=== PATIENT | female | born 1950 | race Caucasian/White ===

== ENCOUNTER 2017-07-13 13:31 | Emergency (ER) | payer BC, OTHER ==
[2017-07-13 13:46] VITALS: BP 109/73
--- NOTE | 2017-07-13 13:53 | UC ---
Palpitation/Dysrhythmia HP - HPI Summary HPI Summary: WAS AT THE GYM TODAY AND BEFORE SHE STARTED HER WORKOUT SHE CHECKED HER PULSE AND IT WAS 150BPM. LEAD NITRATE PROCESSOR ADVISED SHE BE CHECKED OUT. DENIES SOB, CP, NAUSEA, FEVER, VISUAL DISTURBANCES, MONTERO OR ANY OTHER SYMPTOMS. FEELS WELL. SLEEPS WELL, DOES NOT DRINK CAFFEINE. NO RECENT STRESSORS. 2 BROTHERS OR SUDDEN CARDIAC ARREST AGE 50 AND AGE 60. - History of Current Complaint Chief Complaint: UCCardiac Stated Complaint: FAST HEART RATE Time Seen by Provider: 07/13/17 13:40 Hx Obtained From: Patient Onset/Duration: Sudden Onset, Lasting Hours Timing: Constant Severity Initially: Mild Severity Currently: Mild Pain Intensity: 0 Pain Scale Used: 0-10 Numeric Character: Fast Aggravating Factor(s): Nothing Alleviating Factor(s): Nothing Associated Signs & Symptoms: Positive: Negative - Allergy/Home Medications Allergies/Adverse Reactions: Allergies Allergy/AdvReac Type Severity Reaction Status Date / Time Penicillins Allergy Hives Verified 07/13/17 13:47 PMH/Surg Hx/FS Hx/Imm Hx Endocrine History: Diabetes - Surgical History Surgical History: Yes - Family History Known Family History: Positive: Cardiac Disease - Social History Alcohol Use: None Substance Use Type: None Smoking Status (MU): Never Smoked Tobacco Review of Systems Constitutional: Negative Respiratory: Negative Cardiovascular: Palpitations Gastrointestinal: Negative All Other Systems Reviewed And Are Negative: Yes Physical Exam Triage Information Reviewed: Yes Appearance: Well-Appearing, No Pain Distress, Well-Nourished Vital Signs: Initial Vital Signs Temp 97.5 F 07/13/17 13:43 Pulse 153 07/13/17 13:43 Resp 18 07/13/17 13:43 BP 109/73 07/13/17 13:43 Pulse Ox 99 07/13/17 13:43 Vital Signs Reviewed: Yes Eyes: Positive: Conjunctiva Clear ENT: Positive: Hearing grossly normal Neck: Positive: Supple Respiratory Exam: Normal Cardiovascular: Positive: Tachycardia Abdomen Description: Positive: Soft Musculoskeletal: Positive: No Edema Neurological: Positive: Alert Psychological: Positive: Age Appropriate Behavior Skin: Negative: rashes Diagnostics - EKG Cardiac Rate: Tachycardia - 151BPM, SVT Ectopy: None ST Segment: Normal Palpitations Course/Dx - Differential Dx/Diagnosis Provider Diagnoses: SVT - Physician Notifications Discussed Patient Care With: Javan Solis - TO [facility] Time Discussed With Above Provider: 13:53 Instructed by Provider To: MD Will See In ED Discharge - Discharge Plan Condition: Stable Disposition: TRANS HIGHER LVL OF CARE FAC Referrals: Tiffany Ag MD [Primary Care Provider] -
== END 2017-07-13 14:03 | disposition short-term general hospital (02) ==
LOC: UCEAST 13:31
DX: I47.1 Supraventricular tachycardia (principal); Z88.0 Allergy status to penicillin
CPT/HCPCS: 93005; 99203; G0463

== ENCOUNTER 2017-07-13 14:22 | Observation (INO) | payer BC, OTHER ==
[2017-07-13] MEDS ORDERED: Aspirin Low Dose CHEW TAB* 81 MG PO ONE (14:33)
[2017-07-13] MEDS ORDERED: Diltiazem IV VIAL* 125 MG/25 ML VIAL ONE (14:39)
[2017-07-13 14:43] LABS: Hematocrit 45 % (35-47); Hemoglobin 15.4 g/dl (12.0-16.0); Mean Corpuscular HGB Conc 34 g/dl (31-36); Mean Corpuscular Hemoglobin 32 pg (27-31); Mean Corpuscular Volume 92 fL (80-97); Mean Platelet Volume 8 um3 (7.4-10.4); Red Blood Count 4.89 10^6/ul (4.0-5.4); Red Cell Distribution Width 13 % (10.5-15); White Blood Count 8.8 10^3/ul (3.5-10.8)
[2017-07-13] MEDS ORDERED: NS 0.9% 1000 ML* 1,000 ML IV ONE (14:52)
[2017-07-13] MEDS ORDERED: Diltiazem IV VIAL* 125 MG in D5W 100 ML BAG* 100 ML IV ONE (14:52)
[2017-07-13] MEDS ORDERED: Diltiazem IV* 5 MG/ML 5 ML VIAL (for loading dose/IV Push) (25 MG) IV SLOW PU ONE (14:55)
[2017-07-13 15:01] LABS: Troponin I 0.06 ng/mL (<0.04)
[2017-07-13 15:06] LABS: T4 6.41 mcg/mL (6.09-12.23)
[2017-07-13 15:11] LABS: TSH (Thyroid Stimulating Horm) 1.84 mcIU/mL (0.34-5.60)
[2017-07-13 15:21] LABS: Albumin 4.2 g/dL (3.2-5.2); BUN/Creatinine Ratio 18.6 (8-20); Calcium 9.7 mg/dL (8.6-10.3); EGFR African American 84.6 (>60); EGFR Non-African American 65.8 (>60); Globulin 3.2 g/dL (2-4); Magnesium 2.3 mg/dL (1.9-2.7); Total Bilirubin 0.7 mg/dL (0.2-1.0); Total Protein 7.4 g/dL (6.4-8.9)
[2017-07-13 15:47] LABS: Urine Bilirubin Negative (Negative); Urine Glucose Negative (Negative); Urine Nitrite Negative (Negative)
--- NOTE | 2017-07-13 15:47 | RAD ---
Indication: Tachycardia. Comparison: No relevant prior exams available on the [facility] [place] for comparison. Technique: Upright AP 1455 hours Report: No focal pulmonary lesion, compelling alveolar consolidation, pleural effusion, pneumothorax. The heart, pulmonary vasculature, and mediastinal contours are unremarkable. IMPRESSION: No evidence for acute intrathoracic disease.
[2017-07-13 16:06] LABS: Potassium 4.1 mmol/L (3.5-5.0)
[2017-07-13] MEDS ORDERED: Acetaminophen TAB* 325 MG PO PRN (17:25)
[2017-07-13] MEDS ORDERED: Ondansetron INJ* 2 MG/ML VIAL IV PRN (17:25)
[2017-07-13] MEDS: Metoprolol Tartrate TAB* 25 MG PO SCH ×2 (18:31→21:24)
[2017-07-13] MEDS: Rivaroxaban TAB(*) 20 MG TAB PO SCH (18:31)
--- NOTE | 2017-07-13 21:00 | HP ---
CC: Dr. Tiffany Gardner; Dr. Rocio Ponce * ADMISSION HISTORY AND PHYSICAL: DATE OF ADMISSION: 07/13/17 PRIMARY CARE PROVIDER: Dr. Tiffany Gardner. PRIMARY LIVESTOCK INSPECTOR: Dr. Rocio Ponce. ADMITTING PROVIDER: KADEN Ogden SUPERVISING PHYSICIAN: Dr. Travon Carter * (DICTATED BY KADEN OGDEN) CHIEF COMPLAINT: Tachycardia. HISTORY OF PRESENT ILLNESS: This is a 67-year-old female who is otherwise healthy, but has a strong family history of premature coronary artery disease, who presented to the emergency department with a complaint of tachycardia. The patient states that she went to the gym earlier this afternoon and sat on an piece of exercise equipment at which point, it measured her heart rate at approximately 150 beats per minute. She went to another piece of equipment assuming that the initial one was incorrect and it read the same thing. She went to [facility] which referred her to the emergency department for further evaluation. When the patient reached the emergency department, initial EKG demonstrated what appeared to be atrial flutter with a rate of approximately 150 beats per minute. The patient was started on a diltiazem drip and cardioverted in the emergency department, but her troponin is indeterminate at this time and hospitalist group has been asked for admission. Dr. Ponce has consulted in the emergency room. In regards to recent symptoms, the patient states that she has been feeling well. She denies any recent illness. She denies any new hprn-aox-fritkgx medications. She has had no associated shortness of breath or chest pain. She does recall a few palpitations last night, but was able to fall asleep without incident. She does not recall any similar sensations prior to last night. She does not have a personal history of any cardiac disease or dysrhythmias. PAST MEDICAL HISTORY: None. PAST SURGICAL HISTORY: None. HOME MEDICATIONS: Niacin 1000 mg p.o. daily. FAMILY HISTORY: She has significant family history of premature coronary artery disease and sudden cardiac . SOCIAL HISTORY: The patient lives at home with her . She generally consumes about 3 glasses of wine weekly. She denies any smoking history and she is retired. REVIEW OF SYSTEMS: As noted above in HPI, all other systems reviewed and otherwise negative. PHYSICAL EXAMINATION GENERAL: This is a very pleasant 67-year-old female, who appears younger than her stated age and is in no acute distress. VITAL SIGNS: Initial vitals, temperature 97.7 degrees Fahrenheit, pulse 156 beats per minute, respiratory rate 16 per minute, oxygen saturation 97% on room air, and blood pressure 151/89 mmHg. Most recent vitals include a heart rate of 74 beats per minute with a blood pressure of 100/53 mmHg. HEENT: Head is normocephalic and atraumatic. Mucous membranes are pink and moist. RESPIRATORY: Lungs are clear to auscultation without wheezes, crackles, or rhonchi. CARDIOVASCULAR: Heart has a regular rate and rhythm without murmurs, rubs, or gallops. ABDOMEN: Soft and nontender to palpation. EXTREMITIES: No edema appreciated. PSYCH: The patient is alert and appropriately oriented. SKIN: Limited exam shows no concerning rashes or lesions. DIAGNOSTIC STUDIES/LAB DATA: CBC shows a white blood cell count of 8800, hemoglobin 15.4 g/dL, and a platelet count of 248,000. Comprehensive metabolic panel shows a sodium of 140 mmol/L, potassium 4.1, bicarb 26, BUN 16, creatinine of 0.86, and a random glucose of 95. Lactic acid is normal at 1.3. Magnesium normal at 2.3. Transaminases and total bilirubin within normal limits. Troponin indeterminate at 0.06. TSH normal at 1.84. Urinalysis is unremarkable. Imaging: EKG initially shows atrial flutter with a rate of about 150 beats per minute. Repeat EKG shows a sinus rhythm with a right bundle branch block and a short ME interval. Chest x-ray shows no acute process. ASSESSMENT AND PLAN: This is a pleasant and previously healthy 67-year-old female with a strong family history of premature coronary artery disease, who presents with complaints of tachycardia, noted to be in atrial flutter with a rate of about 150 beats per minute, now converted to sinus rhythm, but with mildly elevated troponin. 1. Atrial flutter - the patient has spontaneously converted with diltiazem drip in the emergency department. She will be transitioned to oral metoprolol. Dr. Ponce evaluated the patient in the emergency department, who suggested initiating a NOAC for at least a 1-month period of time; this is unclear how long exactly she has been in this flutter rhythm. We will go ahead and initiate Xarelto. We will plan to obtain an echocardiogram and if her troponins trend down, a stress test in the morning. Due to her strong family history, Dr. Ponce has high suspicion for coronary artery disease and if troponins trend up, would recommend cardiac catheterization. The patient is asymptomatic at this time denying chest pain currently or in the recent past. We will plan to trend her troponin and maintain continuous telemetry monitoring. In terms of inciting factors for this dysrhythmia, there does not appear to be any. The patient denies any recent illness, new medications, nor is there evidence of significant electrolyte abnormalities. Dr. Ponce also suggested initiation of Multaq could be considered if troponins trend down and she has a low risk stress test. We will initiate AV lilly blocking agents at this time until further information is gathered tomorrow. 2. Code status. The patient is full code. 3. Healthcare proxy is her . 4. DVT prophylaxis. The patient will be started on Xarelto. 5. Disposition. The patient is being admitted to observation status with anticipated length of stay to be less than 2 midnights. KADEN OGDEN [id number]/[facility] #: [id number] XUAN
--- NOTE | 2017-07-13 21:25 | CONS ---
CC: Dr. Gardner * CONSULTATION REPORT: DATE OF CONSULT: 07/13/17 REASON FOR CONSULTATION: Atrial flutter. CHIEF COMPLAINT: Tachycardia. HISTORY OF PRESENT ILLNESS: Ms. Schulz is a 67-year-old woman who I follow for atherosclerotic risks, a family history of early atherosclerotic heart disease and sudden . The patient was in her usual state of health, went to the gym this morning and her heart rate monitor that she always wears showed her heart rate was 150 beats a minute. She thought the monitor must be wrong as she felt fine, went to another one and showed the same thing. She went to [facility] where EKG confirmed that she was, in fact, tachycardic and she was sent to the emergency department. By the time I saw her, she had cardioverted from atrial flutter with a rapid ventricular rate to sinus rhythm. The patient states the last night in hindsight, she had some fluttering, but did not really feel bad. She was otherwise completely unaware of the rhythm. When she went into the sinus rhythm in the emergency department, she felt no differently. She denies any recent fevers, chills, sweats. She did drink a little more alcohol recently as her brother was in town. She did not feel it was an excessive amount. She has been tapering her niacin dose. Otherwise, there has been no changes in her lifestyle. PAST MEDICAL HISTORY: Dyslipidemia including elevated Lp(a), depression and concussion twice as a young adult. OUTPATIENT MEDICATIONS: Include: 1. Niacin 1000 mg daily, decreased from 2 g a day. 2. Cymbalta 60 mg a day. ALLERGIES: She is allergic to PENICILLIN. FAMILY HISTORY: Significant for early atherosclerotic heart disease with her father. She has a brother who of sudden and on autopsy was found to have calcific atherosclerosis of the coronaries. She has another brother with atrial fibrillation. Two maternal uncles of heart attacks in their 40s. Their father of a heart attack at age 64. She has brothers with bicuspid valve. His sister with hypertension and dyslipidemia. SOCIAL HISTORY: Drinks occasional glass of wine. Nonsmoker. No history of recreational drug use or abuse. She is and lives with supportive . Two cups of coffee daily. Her occupation is an artist. REVIEW OF SYSTEMS: No recent travel, no recent fevers, chills, sweats. No recent change in functional ability. No chest pain, pressure, headiness, orthopnea, PND. Positive for the fluttering she noted last night. The patient states she sleep well. She denies being told she snores or be having daytime fatigue. She has had no respiratory infections. No nvqy-yft-riedulr medications and no recent change in bowel or bladder habits. All other 14- point review of systems was unremarkable. PHYSICAL EXAM: The patient is 5 feet 8 inches, weighs 169 pounds with a BMI of 26. On arrival to the emergency department, blood pressure 151/89 with a pulse rate of 156, respiratory rate of 16. Her current vitals, blood pressure 126/59 , pulse of 73 and regular, with oxygen saturation 96%. She is afebrile at 97.7. General Appearance: Mildly overweight, somewhat older woman in no acute distress. Psychologically, calm, cooperative, pleasant. Neurologically, awake, alert and oriented to person, place and time. Cranial nerves II through XII intact. Grossly normal sensory and motor function in the upper and lower extremities. Normal gait. Skin: Warm, dry, age appropriate changes. No cyanosis or rashes. HEENT: Pupils are equal and round. Mucous membranes are moist. Neck without increased JVP appreciated. Good carotid pulses. No audible bruits. Lungs: Clear with good effort. No wheezes, rales or rhonchi. Coronary: S1, S2, regular without murmurs or rubs. Abdomen: Soft, nontender , no hepatomegaly. Active bowel sounds, nontender. Lower extremities: Warm and free of edema. DIAGNOSTIC STUDIES/LAB DATA: A 12-lead ECG from the bench machine operator shows a regular tachycardia with a right bundle branch block at a rate of 148 beats a minute with some ST depressions in the precordial leads. Monitor strips on diltiazem drip consistent with atrial flutter with an atrial rate of 300 beat a minute. A 12-lead ECG after cardioversion on a diltiazem drip shows normal sinus rhythm with a short MT interval, a right bundle branch block, normal ST segment. QRS axis of 0. LABS: White count 8.8, hemoglobin 15.4, hematocrit 45, platelets 248. Sodium 140, potassium 4.1, chloride 104, bicarb 26, BUN 16, creatinine 0.86, magnesium 2.3, ALT of 18, troponin #1 0.06. TSH 1.84, thyroxine 6.24. Urinalysis unremarkable. SUMMARY: Sharmila Schulz is a 67-year-old woman who had nearly asymptomatic atrial flutter with 2:1 block as well as a right bundle branch block and short MT interval on her baseline ECG. Short term, I would recommend anticoagulation for at least a month as the duration is uncertain. She has almost no symptoms. There is evidence of some myocardial stress with a mild troponin. We can decide on supervisor intermediates anticoagulation yes or no later as an outpatient. Ultimately, I think she may do better with a flutter ablation with a short TR interval. I do not think it is urgent to emergent. A safe antiarrhythmic although low potency could be Multaq and this could be initiated now. With her family history of early atherosclerotic heart disease, I would not want to start anything that could be pro-arrhythmic without additional testing. For her indeterminant troponin, I think we should trend this and if she remains borderline or indeterminate or normal, we could consider a stress test so if she bumps at all with her strong family history of early atherosclerotic heart disease, I have a low index for cardiac catheterization despite her good functional ability prior to this event. Thank you for allowing me to assist in this nice woman's care. [id number]/[facility] #: [id number] XUAN
[2017-07-14 05:16] LABS: BUN/Creatinine Ratio 17.4 (8-20); Calcium 8.5 mg/dL (8.6-10.3); EGFR African American 109.1 (>60); EGFR Non-African American 84.9 (>60); Magnesium 2.1 mg/dL (1.9-2.7); Potassium 3.9 mmol/L (3.5-5.0)
[2017-07-14] MEDS: Metoprolol Tartrate TAB* 25 MG PO SCH (11:09)
--- NOTE | 2017-07-14 11:22 | RAD ---
Edited for charges. INDICATION: Elevated troponin. New atrial flutter. COMPARISON: No relevant prior exams available on the [facility] PACS for comparison. TECHNIQUE: 10.010 mCi of Tc-99m Myoview were administered IV. SPECT images of the heart were obtained. Later on the same day. Under the direction of Dr. Zavaleta, an exercise stress test was performed. The patient achieved a peak heart rate of 138 bpm, 90 % of the age- predicted maximum. Subsequently, the patient was given an IV injection of 25.780 mCi Tc- 99m Myoview. SPECT images of the heart were obtained and a gated wall motion study was performed. FINDINGS: Gated wall motion images were obtained at stress and demonstrate wall motion to be within normal limits. The calculated left ventricular ejection fraction is 78 % at stress. Estimated LEFT ventricular end diastolic volume is 80 mL. TID 1.03. Diaphragmatic attenuation noted. Based on review of the attenuation corrected and non corrected images the distribution of radiopharmaceutical within the myocardium on the stress and rest images is within normal limits. No fixed or reversible regions of hypoperfusion evident. IMPRESSION: 1. No evidence for stress induced myocardial ischemia or presence of an infarct. 2. Normal left ventricular wall motion and ejection fraction. ASSESSMENT: LOW RISK. Based on imaging criteria from ACC/AHA 2002 Guideline Update for the Management of Patients With Chronic Stable Angina Table 23. Noninvasive Risk Stratification. MTDD
--- NOTE | 2017-07-14 16:39 | ECHO ---
Patient: MATTY RILEY [facility] Rec#: [id number] : 1950 Date: 07/14/2017 Age: 67y Height: 172.72 cm / 68.0 in Weight: 76.66 kg / 169.0 lbs Sex: F BSA: 1.9 Room#: 440 Admit Date#: 07/13/2017 Type: Inpatient Referring: Óscar Sawant Reading: Domingo He DO Pc Tech: Michaela Ng RDCS CC: Tiffany Ag MD Transthoracic Echocardiogram Indication: A-flutter BP: 91/57 HR: 63 Rhythm: NSR Findings History: A-flutter, HLD, positive family history of CAD. Technical Comments: The study quality is fair. The study is technically limited due to patient body habitus. Completed at 1250. Left Ventricle: The left ventricular chamber size is normal. Mild concentric left ventricular hypertrophy is observed. Global left ventricular wall motion and contractility are within normal limits. There is normal left ventricular systolic function. The estimated ejection fraction is 60-65%. Normal left ventricular diastolic filling is observed. Left Atrium: The left atrium is mildly dilated. Right Ventricle: The right ventricle is mildly dilated. The right ventricular global systolic function is low normal. Right Atrium: The right atrium is mildly dilated. Aortic Valve: The aortic valve is trileaflet. Mild aortic leaflet calcification is visualized. There is evidence of aortic sclerosis without stenosis. There is mild aortic regurgitation. Mitral Valve: There is mitral annular calcification. The mitral valve leaflets are mildly thickened. There is trace to mild mitral regurgitation. There is no evidence of mitral stenosis. Tricuspid Valve: The tricuspid valve leaflets are normal. There is moderate tricuspid regurgitation. No pulmonary hypertension is noted. There is no tricuspid stenosis. Pulmonic Valve: The pulmonic valve appears normal. There is a trace pulmonic regurgitation. There is no pulmonic stenosis. Pericardium: There is no significant pericardial effusion. Aorta: There is borderline dilatation of the ascending aorta. There is no dilatation of the aortic arch. The aortic root is normal in size. Pulmonary Artery: The main pulmonary artery is not well visualized. Venous: The inferior vena cava appears normal in size. There is a greater than 50% respiratory change in the inferior vena cava dimension. Conclusions The left ventricular chamber size is normal. Mild concentric left ventricular hypertrophy is observed. There is normal left ventricular systolic function. The estimated ejection fraction is normal at 60-65%. The left atrium is mildly dilated. The right ventricle is mildly dilated with low normal RV function There is evidence of aortic sclerosis without any significant stenosis by doppler evaluation. There is mild aortic regurgitation. There is moderate tricuspid regurgitation. No pulmonary hypertension is noted. There is borderline dilatation of the ascending aorta. Compared to prior study from 10/2012, significant changes are the new presence of mild bi-atrial dilation, TR is now moderate (was mild previously), the RV size is now mildly dilated (was normal previously) Measurements Name Value Normal Range RVIDd (AP) 2D 3.2 cm (0.9 - 2.6) RVDdMajor (2D) 4.3 cm (2.2 - 4.4) RAd ISD 4CH 5 cm (3.4 - 4.9) RA (A4C)W 3.9 cm (2.9 - 4.6) IVSd (2D) 1.2 cm (0.6 - 1) LVPWd (2D) 1.1 cm (0.6 - 1) LVIDd (2D) 4.7 cm (3.6 - 5.4) LVIDs (2D) 3 cm - LV FS (2D) 37 % (25 - 45) Aortic Annulus 1.9 cm (1.4 - 2.6) Ao root diameter (2D) 3.1 cm (2.1 - 3.5) Ascending Ao 3.5 cm (2.1 - 3.4) Aortic arch 2.5 cm (1.8 - 3.4) LA dimension (AP) 2D 3.9 cm (2.3 - 3.8) LAd ISD 4CH 5.4 cm (2.9 - 5.3) LA ISD 4CH W 4.2 cm (2.5 - 4.5) Name Value Normal Range LA ESV SP 4CH (A/L) 48 ml - LA ESV SP 2CH (A/L) 64 ml - LA ESV BP (A/L) 57 ml - LA ESV BP (A/L) index 30 ml/m2 - LA ESV SP 4CH (MOD) 46 ml - LA ESV SP 2CH (MOD) 61 ml - Name Value Normal Range MV E-wave Vmax 0.7 m/sec - MV deceleration time 212 msec - MV A-wave Vmax 0.52 m/sec - MV E:A ratio 1.33 ratio - LV septal e' Vmax 0.1 m/sec - LV lateral e' Vmax 0.08 m/sec - LV E:e' septal ratio 7 ratio - LV E:e' lateral ratio 8.75 ratio - Name Value Normal Range AV Vmax 2.08 m/sec - AV VTI 46.6 cm - AV peak gradient 17.33 mmHg - AV mean gradient 11.61 mmHg - LVOT diameter 2 cm - LVOT Vmax 1.1 m/sec - LVOT VTI 22.9 cm - LVOT peak gradient 4.99 mmHg - LVOT mean gradient 2.37 mmHg - DOI (VTI) 0.49 ratio - AR PHT 456 msec - AR peak gradient 39.4 mmHg - FELICIA Vmax 0.57 m/sec - Name Value Normal Range TR Vmax 2.6 m/sec - TR peak gradient 27 mmHg - RAP 3 mmHg - RVSP 30 mmHg - IVC diameter 1.8 cm - Name Value Normal Range PV Vmax 0.88 m/sec - PV peak gradient 3.07 mmHg -
[2017-07-14 17:16] VITALS: BP 121/55
[2017-07-14] MEDS: Rivaroxaban TAB(*) 20 MG TAB PO SCH (17:19)
--- NOTE | 2017-07-15 02:10 | DS ---
CC: Dr. Gardner; Dr. Rocio Ponce * DISCHARGE SUMMARY: DATE OF ADMISSION: 07/13/17 DATE OF DISCHARGE: 07/14/17 PRIMARY CARE PROVIDER: Dr. Gardner. PRIMARY AND CONSULTING BLEACH BOILER PULLER: Dr. Ponce. DISCHARGING PROVIDER: KADEN Ogden. SUPERVISING PHYSICIAN: Dr. Travon Carter * (DICTATED BY KADEN OGDEN) PRIMARY DISCHARGE DIAGNOSES: 1. Atrial flutter with rapid ventricular rate, status post spontaneous conversion to normal sinus rhythm. 2. Elevated troponin - likely demand related secondary to rapid ventricular rate without evidence of acute coronary syndrome. SECONDARY DISCHARGE DIAGNOSIS: Strong family history of premature coronary artery disease. DISCHARGE MEDICATIONS: 1. Metoprolol tartrate 25 mg p.o. twice daily. 2. Niacin 1000 mg p.o. daily. 3. Xarelto 20 mg p.o. daily. Medication changes: 1. Start metoprolol. 2. Start Xarelto. HOSPITAL IMAGIN. Chest x-ray, 07/13/17 demonstrates no acute process. 2. Nuclear stress testing is read as a low risk study without evidence for a stress-induced myocardial ischemia or presence of prior infarct. 3. Transthoracic echocardiogram, normal LV ejection fraction at 60% to 65%, mild LVH, mild dilation of both the right and left atrium. Right ventricle is mildly dilated with low normal right ventricular function. No pulmonary hypertension noted. HOSPITAL COURSE: This is a very pleasant and otherwise healthy 67-year-old female, who presented to the emergency department with complaints of tachycardia. The patient states that she had gone to the gym and sat on a piece of exercise equipment that measured her heart rate at 150 beats per minute before she had started exercise. She assumed this was a malfunction and tried an alternate piece of equipment, which gave her the same information, but she had no associated chest pain, shortness of breath, or palpitations. She originally was seen at [facility], which subsequently referred her to the emergency department for further evaluation. Initial EKG in the emergency department demonstrated what appeared to be atrial flutter with a rate of about 150 beats per minute. Initial labs were unremarkable with the exception of her troponin, which was elevated to 0.06. The patient had no complaints of chest pain. The patient was started on a diltiazem drip in the emergency department and spontaneously converted to normal sinus rhythm. She was seen by lawn mower, Dr. Ponce, who recommended admission due to her intermediate troponin elevation. Serial troponins remained the same measuring 0.06 on 3 different occasions. She remained in normal sinus rhythm without acute ischemic changes on EKG. No electrolyte abnormalities and the patient remained asymptomatic. She underwent nuclear stress testing and echocardiogram both with benign findings. She does have mildly dilated right ventricle and consider obstructive sleep apnea as a potential etiology for her new onset atrial flutter. Dr. Ponce suggested at least 1 month of anticoagulation as is unclear how long she has been in atrial flutter prior to her acute presentation. DISPOSITION AND FOLLOWUP PLAN: The patient is being discharged to home with the medications as listed above. She will require a close follow up with Dr. Ponce to discuss whether an antiarrhythmic would be a more appropriate choice to help keep her in a sinus rhythm. The patient was instructed to avoid excessive alcohol and caffeine. Could consider an outpatient sleep study to evaluate for obstructive sleep apnea. KADEN OGDEN [id number]/[facility] #: [id number] XUAN
--- NOTE | 2017-07-15 11:21 | ED ---
Aniceto aCmpo Nilda, scribed for Javan Solis MD on 07/13/17 at 1446 . HPI Cardiac - HPI Summary HPI Summary: This patient is a 67 year old F from [facility] to [facility] accompanied by with a chief complaint of tachycardia since earlier today at the gym. She noticed her heart rate on the exercise equipment. The patient rates the pain 0/10 in severity. Symptoms aggravated by exercise and alleviated by nothing. Patient reports feeling great. Patient denies palpitations, lightheaded, fatigue, SOB , and CP. Last night, patient felt chest fluttering. Patient has never been treated for blood pressure. She is a non-smoker and drinks ETOH occasionally. FHx IN. - History of Current Complaint Chief Complaint: EDDysrhythmPalp Stated Complaint: RAPID HEART RATE Time Seen by Provider: 07/13/17 14:32 Hx Obtained From: Patient Onset/Duration: Started Hours Ago, Still Present Current Severity: Mild Pain Intensity: 0 Pain Scale Used: 0-10 Numeric Character: Fast Aggravating Factor(s): Exertion Alleviating Factor(s): Nothing Associated Signs and Symptoms: Positive: Other: - Last night had chest "fluttering". She denies palpitations, lightheaded, fatigue, SOB, and CP. - Allergy/Home Medications Allergies/Adverse Reactions: Allergies Allergy/AdvReac Type Severity Reaction Status Date / Time Penicillins Allergy Hives Verified 07/13/17 13:47 PMH/Surg Hx/FS Hx/Imm Hx Musculoskeletal History: Denies: Hx Osteoporosis Sensory History: Denies: Hx Legally Blind EENT History: Denies: Hx Deafness - Cancer History Hx Chemotherapy: No Hx Radiation Therapy: No Infectious Disease History: Yes Infectious Disease History: Denies: Traveled Outside the [place] in Last 30 Days - Family History Known Family History: Positive: Cardiac Disease - Social History Alcohol Use: None Substance Use Type: Reports: None Smoking Status (MU): Never Smoked Tobacco Review of Systems Negative: Fever, Chills, Fatigue Negative: Erythema Negative: Sore Throat Positive: Other - chest "fluttering" last night . Negative: Palpitations, Chest Pain Negative: Shortness Of Breath, Cough Negative: Abdominal Pain, Vomiting, Nausea Negative: dysuria, hematuria Negative: Myalgia, Edema Negative: Rash Neurological: Other - negative dizziness, and light headedness All Other Systems Reviewed And Are Negative: Yes Physical Exam - Summary Physical Exam Summary: Constitutional: Well-developed, Well-nourished, Alert. (-) Distressed Skin: Warm, Dry HENT: Normocephalic; Atraumatic Eyes: Conjunctiva normal Neck: Musculoskeletal ROM normal neck. (-) JVD, (-) Stridor, (-) Tracheal deviation Cardio: Rapid irregular thready pulse; Intact distal pulses; The pedal pulses are 2+ and symmetric. Radial pulses are 2+ and symmetric. (-) Murmur Pulmonary/Chest wall: Effort normal. (-) Respiratory distress, (-) Wheezes, (-) Rales Abd: Soft, (-) Tenderness, (-) Distension, (-) Guarding, (-) Rebound Musculoskeletal: (-) Edema Lymph: (-) Cervical adenopathy Neuro: Alert, Oriented x3 Psych: Mood and affect Normal Triage Information Reviewed: Yes Vital Signs On Initial Exam: Initial Vitals Temp Pulse Resp BP Pulse Ox 97.7 F 156 16 151/89 97 07/13/17 14:25 07/13/17 14:25 07/13/17 14:25 07/13/17 14:25 07/13/17 14:25 Vital Signs Reviewed: Yes - Ruddy Coma Scale Coma Scale Total: 15 Diagnostics - Vital Signs Vital Signs Temp Pulse Resp BP Pulse Ox 07/13/17 14:34 97 07/13/17 14:30 154 12 171/143 98 07/13/17 14:27 141 98 07/13/17 14:26 151/89 07/13/17 14:25 97.7 F 156 16 151/89 97 - Laboratory Lab Results: Lab Results 07/13/17 07/13/17 07/13/17 Range/Units 13:49 13:49 13:49 WBC 8.8 (3.5-10.8) 10^3/ul RBC 4.89 (4.0-5.4) 10^6/ul Hgb 15.4 (12.0-16.0) g/dl Hct 45 (35-47) % MCV 92 (80-97) fL MCH 32 H (27-31) pg MCHC 34 (31-36) g/dl RDW 13 (10.5-15) % Plt Count 248 (150-450) 10^3/ul MPV 8 (7.4-10.4) um3 Neut % (Auto) 51.9 (38-83) % Lymph % (Auto) 36.6 (25-47) % [place] % (Auto) 10.5 H (1-9) % Eos % (Auto) 0.6 (0-6) % Baso % (Auto) 0.4 (0-2) % Absolute Neuts (auto) 4.6 (1.5-7.7) 10^3/ul Absolute Lymphs (auto) 3.2 (1.0-4.8) 10^3/ul Absolute Monos (auto) 0.9 H (0-0.8) 10^3/ul Absolute Eos (auto) 0.1 (0-0.6) 10^3/ul Absolute Basos (auto) 0 (0-0.2) 10^3/ul Absolute Nucleated RBC 0.01 10^3/ul Nucleated RBC % 0.1 Sodium 140 (133-145) mmol/L Potassium 4.1 (3.5-5.0) mmol/L Chloride 104 (101-111) mmol/L Carbon Dioxide 26 (22-32) mmol/L Anion Gap 10 (2-11) mmol/L BUN 16 (6-24) mg/dL Creatinine 0.86 (0.51-0.95) mg/dL Est GFR ( Amer) 84.6 (>60) Est GFR (Non-Af Amer) 65.8 (>60) BUN/Creatinine Ratio 18.6 (8-20) Glucose 95 (70-100) mg/dL Lactic Acid 1.3 (0.5-2.0) mmol/L Calcium 9.7 (8.6-10.3) mg/dL Magnesium 2.3 (1.9-2.7) mg/dL Total Bilirubin 0.70 (0.2-1.0) mg/dL AST 23 (13-39) U/L ALT 18 (7-52) U/L Alkaline Phosphatase 71 (34-104) U/L Troponin I 0.06 H* (<0.04) ng/mL Total Protein 7.4 (6.4-8.9) g/dL Albumin 4.2 (3.2-5.2) g/dL Globulin 3.2 (2-4) g/dL Albumin/Globulin Ratio 1.3 (1-3) TSH 1.84 (0.34-5.60) mcIU/mL Thyroxine (T4) 6.41 (6.09-12.23) mcg/mL Urine Color Urine Appearance Urine pH (5-9) Ur Specific [place] (1.010-1.030) Urine Protein (Negative) Urine Ketones (Negative) Urine Blood (Negative) Urine Nitrate (Negative) Urine Bilirubin (Negative) Urine Urobilinogen (Negative) Ur Leukocyte Esterase (Negative) Urine Glucose (Negative) 07/13/17 Range/Units 15:33 WBC (3.5-10.8) 10^3/ul RBC (4.0-5.4) 10^6/ul Hgb (12.0-16.0) g/dl Hct (35-47) % MCV (80-97) fL MCH (27-31) pg MCHC (31-36) g/dl RDW (10.5-15) % Plt Count (150-450) 10^3/ul MPV (7.4-10.4) um3 Neut % (Auto) (38-83) % Lymph % (Auto) (25-47) % [place] % (Auto) (1-9) % Eos % (Auto) (0-6) % Baso % (Auto) (0-2) % Absolute Neuts (auto) (1.5-7.7) 10^3/ul Absolute Lymphs (auto) (1.0-4.8) 10^3/ul Absolute Monos (auto) (0-0.8) 10^3/ul Absolute Eos (auto) (0-0.6) 10^3/ul Absolute Basos (auto) (0-0.2) 10^3/ul Absolute Nucleated RBC 10^3/ul Nucleated RBC % Sodium (133-145) mmol/L Potassium (3.5-5.0) mmol/L Chloride (101-111) mmol/L Carbon Dioxide (22-32) mmol/L Anion Gap (2-11) mmol/L BUN (6-24) mg/dL Creatinine (0.51-0.95) mg/dL Est GFR ( Amer) (>60) Est GFR (Non-Af Amer) (>60) BUN/Creatinine Ratio (8-20) Glucose (70-100) mg/dL Lactic Acid (0.5-2.0) mmol/L Calcium (8.6-10.3) mg/dL Magnesium (1.9-2.7) mg/dL Total Bilirubin (0.2-1.0) mg/dL AST (13-39) U/L ALT (7-52) U/L Alkaline Phosphatase (34-104) U/L Troponin I (<0.04) ng/mL Total Protein (6.4-8.9) g/dL Albumin (3.2-5.2) g/dL Globulin (2-4) g/dL Albumin/Globulin Ratio (1-3) TSH (0.34-5.60) mcIU/mL Thyroxine (T4) (6.09-12.23) mcg/mL Urine Color Straw Urine Appearance Clear Urine pH 6.0 (5-9) Ur Specific [place] 1.005 L (1.010-1.030) Urine Protein Negative (Negative) Urine Ketones Trace H (Negative) Urine Blood Negative (Negative) Urine Nitrate Negative (Negative) Urine Bilirubin Negative (Negative) Urine Urobilinogen Negative (Negative) Ur Leukocyte Esterase Negative (Negative) Urine Glucose Negative (Negative) Result Diagrams: 07/13/17 13:49 07/14/17 04:41 Lab Statement: Any lab studies that have been ordered have been reviewed, and results considered in the medical decision making process. - Radiology CXR Radiology Interpretation Completed By: Radiologist - No evidence for acute intrathoracic disease. ED physician has reviewed this radiology report and agrees. - EKG 1429 Cardiac Rate: Tachycardia - 152 bpm EKG Rhythm: Atrial Flutter EKG Interpretation: No STEMI 1503 Cardiac Rate: NL - 71 bpm EKG Rhythm: Sinus Rhythm EKG Interpretation: no STEMI Disposition - Course Course Of Treatment: This patient is a 67 year old F from [facility] to [facility] accompanied by with a chief complaint of tachycardia since earlier today at the gym. She noticed her heart rate on the exercise equipment. The patient rates the pain 0/10 in severity. Symptoms aggravated by exercise and alleviated by nothing. Patient reports feeling great. Patient denies palpitations, lightheaded, fatigue, SOB, and CP. Last night, patient felt chest fluttering. Patient has never been treated for blood pressure. She is a non- smoker and drinks ETOH occasionally. FHx IN. Troponin 0.06. An EKG at 1429 reveals sinus tachycardia, 152 bpm, no STEMI, A-flutter. An EKG at 1503 reveals NSR, 71 bpm, no STEMI. CXR reveals no evidence for acute intrathoracic disease. ED physician has reviewed this radiology report and agrees. [1550] We discussed patient care with Dr. Ponce who will visit patient in ED and recommends admission since time of onset is unknown. [1604] Dr. Maat ( Hospitalist) agrees to admit patient. 45 mins CCT. - Diagnoses Provider Diagnoses: Elevated troponin, Atrial flutter with rapid ventricular response - Physician Notifications Discussed Care Of Patient With: Rocio Ponce - Cardiology Time Discussed With Above Provider: 15:51 Instructed by Provider To: Other - Will visit patient and recommends admission since time of onset is unknown - Critical Care Time Critical Care Time: 30-74 min - 45 mins Discharge - Discharge Plan Condition: Stable Disposition: ADMITTED TO [facility] The documentation as recorded by the Aniceto fay Nilda accurately reflects the service I personally performed and the decisions made by , Javan Solis MD.
== END 2017-07-14 18:03 | disposition home or self-care (01) ==
LOC: ED 14:22 → MEDTELE 16:09
PROVIDERS: ADMIT Internal Medicine; ATTEND Hospitalist
DX: I48.92 Unspecified atrial flutter (principal); R94.8 Abnormal results of function studies of other organs and systems; Z79.01 Long term (current) use of anticoagulants; Z88.0 Allergy status to penicillin; I45.10 Unspecified right bundle-branch block; R00.1 Bradycardia, unspecified; I51.7 Cardiomegaly; Z82.49 Family history of ischemic heart disease and other diseases of the circulatory system
CPT/HCPCS: 36415; 71010; 78452; 80048; 80053; 81003; 83605; 83735; 84436; 84443; 84484; 85025; 93005; 93017; 93306; 96365; 96366; 99291; A9270-GY; A9502; G0378